=== PATIENT | female | born 1935 | race Caucasian/White ===

== ENCOUNTER 2017-01-31 09:08 | Emergency (ER) | payer BC, MEDICARE ==
[2017-01-31 09:47] LABS: BASO % 0.2 % (0.1-1.2); EOS # 0.4 10_X3_uL (0.0-0.4); EOS % 7.7 % (0.7-5.8); GRAN # 2.2 10_X3_uL (1.6-6.1); GRAN % 47.8 % (34.0-71.1); HEMATOCRIT 30.5 % (34-45); HEMOGLOBIN 10.5 g/dL (11.2-15.7); LYMPH # 1.4 10_X3_uL (1.2-3.7); LYMPH % 30.1 % (19.3-51.7); MEAN CORPUSCULAR HGB CONC 34.4 g/dL (32.0-36.0); MEAN PLATELET VOLUME 8.5 fl (7.5-11.5); MONO # 0.6 10_X3_uL (0.2-0.9); MONO % 14.2 % (4.7-12.5); PLATELET COUNT 183 x10_3/uL (182-369); RED CELL DISTRIBUTION WIDTH 16.4 % (11.7-14.4); WHITE BLOOD COUNT 4.5 x10_3/uL (4.0-10.0)
[2017-01-31 09:57] LABS: CALCIUM 9.1 mg/dL (8.7-10.7); CREATININE 1.4 mg/dL (0.6-1.3); POTASSIUM 3.5 mmol/L (3.5-5.1)
[2017-01-31 09:59] LABS: MEAN CORPUSCULAR HEMOGLOBIN 38.9 pg (27.0-33.0)
== END 2017-01-31 12:01 | disposition home or self-care (01) ==
LOC: ER 09:08
PROVIDERS: Family Medicine
DX: K52.9 Noninfective gastroenteritis and colitis, unspecified (principal); Z85.3 Personal history of malignant neoplasm of breast; Z90.12 Acquired absence of left breast and nipple; C79.9 Secondary malignant neoplasm of unspecified site; I10 Essential (primary) hypertension; Z90.49 Acquired absence of other specified parts of digestive tract; Z79.899 Other long term (current) drug therapy
CPT/HCPCS: 36415; 80048; 85025; 96360; 96361; 99070; 99283-25